=== PATIENT | female | born 1945 | race Two or more races ===

== ENCOUNTER 2017-12-27 14:19 | Emergency (ER) | payer OTHER ==
[~2017-12-27] VITALS: Ht 157.5 cm; Wt 74.4 kg
[~2017-12-27 14:19] MED LIST: DOLOGESIC CAPLE1 TAB PO; JANUMET 50-1,1 UDTAB; MECLIZINE HCL25 MG PO; SIMVASTATIN5 MG; TRAMADOL HCL50 MG PO; ZANTAC300 MG PO
[2017-12-27] MEDS ORDERED: AVAPRO300 MG (14:40)
[2017-12-28] MEDS ORDERED: LEVAQUIN750 MG PO (03:15)
[2017-12-28] MEDS ORDERED: KETO10TA2 PO (03:15)
== END 2017-12-28 03:27 | disposition home or self-care (01) ==
LOC: ER 14:19
DX: N39.0 Urinary tract infection, site not specified (principal); B96.20 Unspecified Escherichia coli [E. coli] as the cause of diseases classified elsewhere; R31.29 Other microscopic hematuria

== ENCOUNTER 2024-08-28 16:59 | Emergency (ER) | payer OTHER ==
[~2024-08-28] VITALS: Ht 152.4 cm; Wt 65.8 kg
[~2024-08-28 16:59] MED LIST changes: +AVAPRO300 MG; +KETO10TA2 PO; +LEVAQUIN750 MG PO
[2024-08-28] MEDS ORDERED: TRULICITY0.75 MG/0. (17:21)
[2024-08-28 21:52] LABS: HEMATOCRIT 38.8 % (36.0-45.00); HEMOGLOBIN 13.1 g/dL (12.0-15.00); MEAN CELL VOLUME 84.7 fL (80.00-100.00); MEAN CORPUSCULAR HEMOGLOBIN 28.6 pg (27.00-32.0); MEAN CORPUSCULAR HGB CONC 33.8 g/dl (32.0-36.0); PLATELET COUNT 295 K/uL (150-450); RED BLOOD COUNT 4.58 M/uL (4.00-6.00); RED CELL DISTRIBUTION WIDTH 13.7 % (11.5-14.5)
[2024-08-28 22:04] LABS: PH,URINE 7.5 (5.0-8.0); URINE APPEARANCE Clear; URINE BILIRRUBIN Negative (NEGATIVE); URINE BLOOD Negative; URINE COLOR Yellow; URINE GLUCOSE Negative (NEGATIVE); URINE KETONE Negative (NEGATIVE); URINE LEUKOCYTE Negative; URINE NITRATE Negative; URINE PROTEIN Negative (NEGATIVE); URINE UROBILINOGEN 0.2 E.U./dl
[2024-08-28 22:09] LABS: URINE BACTERIA 12.2 uL (0.0-1933); URINE EPITHELIAL CELLS 1.7 uL (0.0-38.8); URINE RBC 2.3 uL (0.0-20.8)
[2024-08-28 22:13] LABS: URINE WBC 1.7 uL (0.0-23.2)
[2024-08-28 22:13] LABS: CALCIUM 9.4 mg/dL (8.5-10.1); CREATININE SERUM 0.61 mg/dL (0.55-1.02); GFR 94.86; POTASSIUM 4.1 mEq/L (3.5-5.1)
== END 2024-08-28 22:40 | disposition home or self-care (01) ==
LOC: ER 17:01
PROVIDERS: General Practice
DX: R07.89 Other chest pain (principal); I10 Essential (primary) hypertension; Z88.6 Allergy status to analgesic agent; Z91.018 Allergy to other foods